=== PATIENT | female | born 1940 | race Caucasian/White ===

== ENCOUNTER 2020-10-16 14:16 | Emergency (ER) | payer MEDICARE, OTHER ==
[2020-10-16 15:10] LABS: ANION GAP 16.6 mEq/L (7-13); CHLORIDE,CL 99 mmol/L (98-107); SODIUM,NA 137 mmol/L (136-145)
--- NOTE | 2020-10-16 15:18 | EDM.PDOC ---
ED HPI GENERAL MEDICAL PROBLEM - General Stated Complaint: UNKNOWN Time Seen by Provider: 10/16/20 14:56 Source of Information: Reports: Patient, Provider (Dr. Galindo) History Limitations: Reports: No Limitations - History of Present Illness INITIAL COMMENTS - FREE TEXT/NARRATIVE: This 80 yo female patient was brought to the ED from the [facility] due to increased shortness of breath, chest pain, altered mentation and a cough. The patient reports her chest pain started at 0100 this morning and lasted for 15 minutes. The patient reports the pain was very "sharp" and remained in the middle of her chest. The patient has a history of Parkinson's with some Parkinson's related dementia. The patient reports she has been staying home most of the time except for going to [employer]. The patient reports her was pushing her in the wheelchair going to the clinic visit when she started to get tired due to attempting to keep her feet off the ground (no pedals on the wheelchair). The patient reports she was fighting with her just before Dr. Galindo and her nurse came into the exam room to see her. The patient reports her chest pain has not came back since this morning. Onset: Today Duration: Resolved Prior to Arrival Location: Reports: Chest Quality: Reports: Other Severity: Moderate Improves with: Reports: None Worsens with: Reports: None Context: Reports: Other Associated Symptoms: Reports: Chest Pain, Cough, Shortness of Breath Past Medical History HEENT History: Reports: Impaired Vision Other HEENT History: wears glasses Cardiovascular History: Reports: Heart Failure, Hypertension Respiratory History: Reports: None Genitourinary History: Reports: None DATABASE SUPPORT History: Reports: None Neurological History: Reports: Parkinson's Psychiatric History: Reports: Anxiety Hematologic History: Reports: None Immunologic History: Reports: None Oncologic (Cancer) History: Reports: None Dermatologic History: Reports: None - Infectious Disease History Infectious Disease History: Reports: Chicken Pox, Measles, Mumps - Past Surgical History Head Surgeries/Procedures: Reports: None HEENT Surgical History: Reports: Cataract Surgery GI Surgical History: Reports: Appendectomy Musculoskeletal Surgical History: Reports: Shoulder Replacement Other Musculoskeletal Surgeries/Procedures:: parkinsons Social & Family History - Tobacco Use Tobacco Use Status *Q: Never Tobacco User Second Hand Smoke Exposure: No - Caffeine Use Caffeine Use: Reports: Coffee, Soda, Tea - Recreational Drug Use Recreational Drug Use: No ED ROS GENERAL - Review of Systems Review Of Systems: Comprehensive ROS is negative, except as noted in HPI. ED EXAM, GENERAL - Physical Exam Exam: See Below Exam Limited By: No Limitations General Appearance: Alert, WD/WN, Moderate Distress Eye Exam: Bilateral Eye: EOMI, Normal Inspection, PERRL Ears: Normal External Exam, Normal Canal, Hearing Grossly Normal, Normal TMs Nose: Normal Inspection, Normal Mucosa, No Blood Throat/Mouth: Normal Inspection, Normal Lips, Normal Teeth, Normal Gums, Normal Oropharynx, Normal Voice, No Airway Compromise Head: Atraumatic, Normocephalic Neck: Normal Inspection, Supple, Non-Tender, Full Range of Motion Respiratory/Chest: Decreased Breath Sounds Cardiovascular: Normal Peripheral Pulses, Regular Rate, Rhythm, No Edema, No Gallop, No JVD, No Murmur, No Rub GI/Abdominal: Normal Bowel Sounds, Soft, Non-Tender, No Organomegaly, No Distention, No Abnormal Bruit, No Mass (Female) Exam: Deferred Rectal (Female) Exam: Deferred Back Exam: Normal Inspection, Full Range of Motion, NT Extremities: Normal Inspection, Normal Range of Motion, Non-Tender, Normal Capillary Refill, No Pedal Edema Neurological: Alert, Oriented, CN II-XII Intact, Normal Cognition, Normal Gait, Normal Reflexes, No Motor/Sensory Deficits Psychiatric: Normal Affect, Normal Mood Skin Exam: Warm, Dry, Intact, Normal Color, No Rash Lymphatic: No Adenopathy Course - Vital Signs Last Recorded V/S: Last Vital Signs Temp 36.7 C 10/16/20 14:40 Pulse 76 10/16/20 14:40 Resp 20 10/16/20 14:40 BP 121/48 L 10/16/20 14:40 Pulse Ox 97 10/16/20 14:40 - Orders/Labs/Meds Orders: Active Orders 24 hr Category Date Time Status EKG Documentation Completion [RC] STAT Care 10/16/20 14:10 Active CULTURE BLOOD [BC] Stat Lab 10/16/20 14:35 Received CULTURE URINE [RM] Urgent Lab 10/16/20 15:18 Received REFLEX LACTIC ACID YES OR NO [CHEM] Routine Lab 10/16/20 15:14 Received Labs: Laboratory Tests 10/16/20 10/16/20 10/16/20 Range/Units 14:08 14:35 14:35 WBC 6.3 (5.0-10.0) 10^3/uL RBC 2.88 L (4.2-5.4) 10^6/uL Hgb 9.0 L (12.0-16.0) g/dL Hct 27.3 L (37.0-47.0) % MCV 94.8 (80-100) fL MCH 31.3 (27.0-34.0) pg MCHC 33.0 (33.0-35.0) g/dL Plt Count 720 H (150-450) 10^3/uL Neut % (Auto) 54.0 (42.2-75.2) % Lymph % (Auto) 21.1 (20.5-50.1) % Sunflower % (Auto) 22.7 H (2-8) % Eos % (Auto) 0.5 L (1.0-3.0) % Baso % (Auto) 1.7 H (0.0-1.0) % Add Manual Diff Yes Neutrophils % (Manual) 51 (42-75) % Lymphocytes % (Manual) 27 (20-50) % Monocytes % (Manual) 21 H (2-8) % Eosinophils % (Manual) 1 (1-3) % Platelet Estimate Marked inc D-Dimer, Quantitative (0-400) ng/mL Sodium 137 (136-145) mmol/L Potassium 3.6 (3.5-5.1) mmol/L Chloride 99 (98-107) mmol/L Carbon Dioxide 25 (21-32) mmol/L Anion Gap 16.6 H (7-13) mEq/L BUN 14 (7-18) mg/dL Creatinine 1.17 H (0.55-1.02) mg/dL Est Cr Clr Drug Dosing 34.22 mL/min Estimated GFR (MDRD) 45 BUN/Creatinine Ratio 12.0 (No establ ref range) Glucose 107 H (74-99) mg/dL Lactic Acid (0.4-2.0) mmol/L Calcium 8.4 L (8.5-10.1) mg/dL Total Bilirubin 1.1 H (0.2-1.0) mg/dL AST 34 (15-37) U/L ALT 15 (14-59) U/L Alkaline Phosphatase 101 (46-116) U/L Troponin I < 0.017 (0.000-0.056) ng/mL B-Natriuretic Peptide 337 H (0-100) pg/ml Total Protein 7.0 (6.4-8.2) g/dL Albumin 3.6 (3.4-5.0) g/dL Globulin 3.4 Albumin/Globulin Ratio 1.1 Urine Color (YELLOW) Urine Appearance (CLEAR) Urine pH (5.0-9.0) Ur Specific [place] (1.005-1.030) Urine Protein (NEGATIVE) Urine Glucose (UA) (NEGATIVE) Urine Ketones (NEGATIVE) Urine Occult Blood (NEGATIVE) Urine Nitrite (NEGATIVE) Urine Bilirubin (NEGATIVE) Urine Urobilinogen (0.2-1.0) mg/dL Ur Leukocyte Esterase (NEGATIVE) SARS CoV-2 RNA Rapid PIETER Positive H (NEGATIVE) 10/16/20 10/16/20 10/16/20 Range/Units 14:35 14:35 15:18 WBC (5.0-10.0) 10^3/uL RBC (4.2-5.4) 10^6/uL Hgb (12.0-16.0) g/dL Hct (37.0-47.0) % MCV (80-100) fL MCH (27.0-34.0) pg MCHC (33.0-35.0) g/dL Plt Count (150-450) 10^3/uL Neut % (Auto) (42.2-75.2) % Lymph % (Auto) (20.5-50.1) % Sunflower % (Auto) (2-8) % Eos % (Auto) (1.0-3.0) % Baso % (Auto) (0.0-1.0) % Add Manual Diff Neutrophils % (Manual) (42-75) % Lymphocytes % (Manual) (20-50) % Monocytes % (Manual) (2-8) % Eosinophils % (Manual) (1-3) % Platelet Estimate D-Dimer, Quantitative 460 H (0-400) ng/mL Sodium (136-145) mmol/L Potassium (3.5-5.1) mmol/L Chloride (98-107) mmol/L Carbon Dioxide (21-32) mmol/L Anion Gap (7-13) mEq/L BUN (7-18) mg/dL Creatinine (0.55-1.02) mg/dL Est Cr Clr Drug Dosing mL/min Estimated GFR (MDRD) BUN/Creatinine Ratio (No establ ref range) Glucose (74-99) mg/dL Lactic Acid 3.9 H* (0.4-2.0) mmol/L Calcium (8.5-10.1) mg/dL Total Bilirubin (0.2-1.0) mg/dL AST (15-37) U/L ALT (14-59) U/L Alkaline Phosphatase (46-116) U/L Troponin I (0.000-0.056) ng/mL B-Natriuretic Peptide (0-100) pg/ml Total Protein (6.4-8.2) g/dL Albumin (3.4-5.0) g/dL Globulin Albumin/Globulin Ratio Urine Color Yellow (YELLOW) Urine Appearance Turbid (CLEAR) Urine pH 7.0 (5.0-9.0) Ur Specific [place] 1.020 (1.005-1.030) Urine Protein Negative (NEGATIVE) Urine Glucose (UA) Negative (NEGATIVE) Urine Ketones Negative (NEGATIVE) Urine Occult Blood Trace-intact H (NEGATIVE) Urine Nitrite Positive H (NEGATIVE) Urine Bilirubin Negative (NEGATIVE) Urine Urobilinogen >=8.0 H (0.2-1.0) mg/dL Ur Leukocyte Esterase Large H (NEGATIVE) SARS CoV-2 RNA Rapid PIETER (NEGATIVE) Departure - Departure Time of Disposition: 15:53 Disposition: Home, Self-Care 01 Condition: Fair Clinical Impression: COVID-19 Instructions: COVID-19: How to Protect Yourself and Others - CDC, COVID-19 Frequently Asked Questions, Prevent the Spread of COVID-19 if You Are Sick - CDC Forms: ED Department Discharge Care Plan Goals: The patient was advised of the examination, lab, EKG and x-ray results during the visit. The patient was encouraged to monitor her symptoms and temperature. If the patient has any additional symptoms or further concerns, the patient should either return to the emergency department or visit her primary care facility. Sepsis Event Note (ED) - Evaluation Sepsis Screening Result: No Definite Risk - Focused Exam Vital Signs: Vital Signs Temp Pulse Resp BP Pulse Ox 10/16/20 14:40 36.7 C 76 20 121/48 L 97 - My Orders Last 24 Hours: My Active Orders 10/16/20 14:10 EKG Documentation Completion [RC] STAT 10/16/20 14:35 CULTURE BLOOD [BC] Stat 10/16/20 15:14 REFLEX LACTIC ACID YES OR NO [CHEM] Routine 10/16/20 15:18 CULTURE URINE [RM] Urgent - Assessment/Plan Last 24 Hours: My Active Orders 10/16/20 14:10 EKG Documentation Completion [RC] STAT 10/16/20 14:35 CULTURE BLOOD [BC] Stat 10/16/20 15:14 REFLEX LACTIC ACID YES OR NO [CHEM] Routine 10/16/20 15:18 CULTURE URINE [RM] Urgent
--- NOTE | 2020-10-16 15:31 | CR ---
EXAMINATION: Chest 1V Frontal SEX: Female AGE: 80 years CLINICAL HISTORY: 80-year-old female complaining of CHEST PAIN. INTERPRETATION: 1. Subtle new left shoulder (orthopedic prosthesis) since comparison film 07 February 2013. 2. Normal cardiac silhouette (size and configuration). No pulmonary vascular congestion, cephalization of flow, alveolar edema or dependent new pleural fluid accumulation (effusion). 3. No new lung mass, hilar lymphadenopathy or focal lobar consolidation (infiltrate/atelectasis). 4. No peripheral "groundglass" interstitial infiltrates. 5. No pneumothorax or pneumomediastinum. No free subdiaphragmatic air. CONCLUSION: No acute new cardiopulmonary abnormality despite less than optimal inspiratory effort.
== END 2020-10-16 16:36 | disposition home or self-care (01) ==
LOC: DL.ED 14:16
DX: U07.1 COVID-19 (principal); I11.0 Hypertensive heart disease with heart failure; I50.9 Heart failure, unspecified; G20 Parkinson's disease
CPT/HCPCS: 36415; 71045; 80053; 81001; 83605; 83880; 84484; 85025; 85379; 87040; 87086; 87088; 87186; 93005; 99285; U0002